=== PATIENT | female | born 1995 | race African-American/Black ===

== ENCOUNTER 2017-08-24 23:13 | Emergency (ER) | payer SELFPAY ==
[~2017-08-24] VITALS: Ht 157.5 cm; Wt 55.0 kg
[~2017-08-24 23:13] MED LIST: DICL50 PO
[2017-08-24 23:14] VITALS: BP 119/59; PULSE 64; RESP 16; TEMP 97.5; O2SAT 98
--- NOTE | 2017-08-24 23:45 | PD ---
HPI . 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 Onset was 2 weeks ago. She states that it has a foul odor. No modifying factors. She states that she always has pain with sexual intercourse. PFSH Past Medical History Medical History: Denies Significant Hx ?: Not Past Surgical History Surgical History: No Previous Surgery Social History Alcohol Use: No Tobacco Use: No Substance Use: No Allergies-Medications (Allergen,Severity, Reaction): Coded Allergies: No Known Allergies (Unverified , 08/30/14) Reported Meds & Prescriptions Reported Meds & Active Scripts Active Review of Systems Except as stated in HPI: all other systems reviewed are Neg General / Constitutional: No: Fever, Chills Gastrointestinal: No: Nausea, Vomiting, Diarrhea, Abdominal Pain Genitourinary: Positive: Discharge, No: Urgency, Frequency, Dysuria, Pelvic Pain Physical Exam Narrative GENERAL: Awake and alert and in no acute distress. SKIN: Warm and dry. HEAD: Normocephalic/atraumatic. EYES: Pupils are equal. Extraocular movements are intact. NECK: Normal range of motion. CARDIOVASCULAR: Regular rate and rhythm. RESPIRATORY: Nonlabored respirations. ABD: Abdomen is soft and nontender. 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 Scant discharge in the vaginal vault. Cervical os is closed. There is no cervical motion tenderness. There is no adnexal tenderness or mass. MUSCULOSKELETAL: Atraumatic. NEUROLOGICAL: Nonfocal. PSYCHIATRIC: Appropriate mood and affect. Data Data Last Documented VS Vital Signs Date Time Temp Pulse Resp B/P (MAP) Pulse Ox O2 Delivery O2 Flow Rate FiO2 08/24/17 23:14 97.5 64 16 119/59 (79) 98 Room Air Orders Orders Gc And Chlamydia Pcr (08/24/17 23:28) Wet Prep Profile (08/24/17 23:28) Urinalysis - C+S If Indicated (08/24/17 23:28) Ed Urine Pregnancytest Poc (08/24/17 23:28) Labs Laboratory Tests Test 08/24/17 23:35 Urine Color YELLOW Urine Turbidity CLEAR Urine pH 6.5 Urine Specific [place] 1.030 Urine Protein TRACE mg/dL Urine Glucose (UA) NEG mg/dL Urine Ketones NEG mg/dL Urine Occult Blood NEG Urine Nitrite NEG Urine Bilirubin NEG Urine Urobilinogen 2.0 MG/DL Urine Leukocyte Esterase MOD Urine RBC 1 /hpf Urine WBC 1 /hpf Urine Squamous Epithelial Cells 4 /hpf Urine Mucus FEW /lpf Microscopic Urinalysis Comment CULT NOT INDICATED Clue Cells (Wet Prep) NONE SEEN Vaginal Trichomonas (Wet Prep) NONE SEEN Vaginal Yeast (Wet Prep) NONE SEEN MDM Medical Decision Making Medical Screen Exam Complete: Yes Emergency Medical Condition: Yes Differential Diagnosis Differential diagnosis of vaginal discharge includes but is not limited to physiologic discharge, yeast infection, bacterial vaginosis, sexually transmitted disease. Narrative Course This patient presents complaining with vaginal discharge. She does not have pelvic pain. Her pelvic exam is benign. Wet prep, GC chlamydial DNA probe, UA and hCG are pending. HCG neg UA neg wet prep neg No etiology for this patient's vaginal discharge has been found. She did not have a significant vaginal discharge on exam. The history, exam, diagnostic testing, and current condition do not suggest any significant pathology to warrant further testing, continued ED treatment, admission, or surgical evaluation at this point. No EMC was found. The patient 's condition is stable and appropriate for discharge. Diagnosis Primary Impression: Vaginal discharge Disposition: DISCHARGE HOME Condition: Stable Nimo Gonzalez MD Aug 24, 2017 23:45
[2017-08-25 00:14] LABS: BLOOD, URINE NEG (NEG); COMMENT (UR) CULT NOT INDICATED; CULTURE IF INDICATED CULT NOT INDICATED; GLUCOSE,URINE NEG (NEG); KETONE, URINE NEG (NEG); MUCUS URINE FEW /lpf (OCC); NITRITE,URINE NEG (NEG); PH, URINE 6.5 (5.0-8.5); SQUAMOUS EPITHELIAL CELL URINE 4 /hpf (0-5); URINE COLOR YELLOW (YELLW/STRAW)
[2017-08-25 01:49] LABS: CHLAMYDIA PCR NOT DETECTED (NOT DETECT); NEISSERIA PCR NOT DETECTED (NOT DETECT)
== END 2017-08-25 01:02 | disposition home or self-care (01) ==
LOC: NEPD 23:13
DX: N89.8 Other specified noninflammatory disorders of vagina (principal); N94.10 Unspecified dyspareunia
CPT/HCPCS: 81001; 84703; 87210; 87491; 87591; 99284

== ENCOUNTER 2017-09-02 09:50 | Emergency (ER) | payer SELFPAY ==
[~2017-09-02] VITALS: Ht 157.5 cm; Wt 55.1 kg
[2017-09-02 09:54] VITALS: BP 110/68; PULSE 78; RESP 16; TEMP 98.4; O2SAT 100
[2017-09-02] MEDS ORDERED: PENI500T PO (10:27)
--- NOTE | 2017-09-02 10:28 | PD ---
HPI Chief Complaint: ENT Complaint Time Seen by Provider: 10:01 Travel History International Travel<30 days: No Contact w/Intl Traveler<30days: No Traveled to known affect area: No History of Present Illness HPI 22-year-old female here with sore throat and fever 4 days. She reports comfort with swallowing. Able to eat and drink without difficulty. Symptom severity is moderate. No alleviating factors. PFSH Past Medical History Medical History: Denies Significant Hx Tetanus Vaccination: < 5 Years Influenza Vaccination: No ?: Not LMP: 08/14/17 Past Surgical History Surgical History: No Previous Surgery Social History Alcohol Use: Yes (occass) Tobacco Use: Yes Substance Use: No Allergies-Medications (Allergen,Severity, Reaction): Coded Allergies: No Known Allergies (Unverified Adverse Reaction, Unknown, 09/02/17) Reported Meds & Prescriptions Reported Meds & Active Scripts Active No Active Prescriptions or Reported Medications Review of Systems Except as stated in HPI: all other systems reviewed are Neg General / Constitutional: Positive: Fever HENT: Positive: Sore Throat Physical Exam Narrative GENERAL: Alert well-appearing female SKIN: Warm and dry. HEAD: Normocephalic. EYES: No injection or drainage. THROAT: Pharyngeal erythema, tonsillar hypertrophy with exudate. Uvula is midline. Airway is patent. NECK: Supple, trachea midline. Mild submandibular lymphadenopathy. CARDIOVASCULAR: Regular rate and rhythm without murmurs, gallops, or rubs. RESPIRATORY: Breath sounds equal bilaterally. No accessory muscle use. Data Data Last Documented VS Vital Signs Date Time Temp Pulse Resp B/P (MAP) Pulse Ox O2 Delivery O2 Flow Rate FiO2 09/02/17 09:54 98.4 78 16 110/68 (82) 100 MDM Medical Decision Making Medical Screen Exam Complete: Yes Emergency Medical Condition: Yes Differential Diagnosis Strep pharyngitis, viral pharyngitis, mononucleosis Narrative Course 22-year-old female here with exudative tonsillitis 4 days. She is nontoxic appearing. Her vital signs are stable. Her airway is patent. She will be treated for presumed strep pharyngitis. Diagnosis Primary Impression: Pharyngitis Qualified Codes: J02.9 - Acute pharyngitis, unspecified Referrals: [facility] Departure Forms: Tests/Procedures, Work Release Enter return to work date: Sep 03, 2017 Scripts Penicillin V Potassium (Penicillin V Potassium) 500 Mg Tab 500 MG PO BID for Infection for 10 Days, #20 TAB 0 Refills Prov: Nell Godoy 09/02/17 Disposition: 01 DISCHARGE HOME Condition: Stable Nell Godoy Sep 02, 2017 10:28
== END 2017-09-02 11:02 | disposition home or self-care (01) ==
LOC: PHED 09:50
DX: J02.9 Acute pharyngitis, unspecified (principal); Z72.0 Tobacco use
CPT/HCPCS: 99283